=== PATIENT | male | born 1990 | race Caucasian/White ===

== ENCOUNTER 2018-07-27 15:42 | Emergency (ER) | payer SELFPAY ==
[~2018-07-27] VITALS: Ht 177.8 cm; Wt 86.2 kg
[2018-07-27 15:56] VITALS: BP 121/73
[2018-07-27] MEDS ORDERED: LIDOCAINE WITH 8.4% SOD BICARB 3 ML DISP.SYRIN. INJ ONE (16:00)
[2018-07-27] MEDS ORDERED: DIPHTH,PERTUSS(ACELL),TET TOX 0.5 ML DISP.SYRIN. VAX IM ONE (16:15)
--- NOTE | 2018-07-27 16:45 | PHYS DOC ---
Past Medical History Past Medical History: Anxiety, Depression Past Surgical History: No Surgical History Alcohol Use: None Drug Use: None Adult General Chief Complaint Chief Complaint: FINGER INJURY HPI HPI Patient is a 27 year old male who presents to be evaluated for fishing lure that got logged in the left middle finger today. Patient is right-handed. Review of Systems Review of Systems Constitutional: Denies fever or chills [] Musculoskeletal: Denies back pain or joint pain [] Integument: fishing lure logged in the left middle finger Neurologic: Denies headache, focal weakness or sensory changes [] All other systems were reviewed and found to be within normal limits, except as documented in this note. Current Medications Current Medications Current Medications Medications (Trade) Dose Ordered Sig/Ortiz Start Time Stop Time Status Last Admin Dose Admin Diphtheria/ Tetanus/Acell Pertussis (Boostrix) 0.5 ml ONCE ONCE 07/27/18 16:15 07/27/18 16:16 DC Lidocaine/Sodium Bicarbonate (Buffered Lidocaine 1%) 3 ml 1X ONCE 07/27/18 16:00 07/27/18 16:01 DC 07/27/18 16:00 3 ML Allergies Allergies Allergies Coded Allergies Type Severity Reaction Last Updated Verified No Known Drug Allergies 07/27/18 No Physical Exam Physical Exam Constitutional: Well developed, well nourished, no acute distress, non-toxic appearance. [] Skin: Warm, dry, tip of the left middle finger with a fish lure logged into the tip of the finger. Neurovascular exam is intact. Back: No tenderness, no CVA tenderness. [] Extremities: No tenderness, no cyanosis, no clubbing, ROM intact, no edema. [] Neurologic: Alert and oriented X 3, normal motor function, normal sensory function, no focal deficits noted. [] Psychologic: Affect normal, judgement normal, mood normal. [] Current Patient Data Vital Signs Vital Signs Date Time Temp Pulse Resp B/P (MAP) Pulse Ox O2 Delivery O2 Flow Rate FiO2 07/27/18 15:56 98.7 108 16 121/73 (89) 100 Room Air 98.7 EKG EKG [] Radiology/Procedures Radiology/Procedures Indication: fishing lure logged in the left middle Procedure: The area of the foreign body was left middle finger. Local anesthesia over the foreign body site was 1% buffered lidocaine. The fish lower slack was cut with a pair of pliers and the hook removed successfully. After the procedure dressing was applied to the area. The patient's tetanus status updated The patient tolerated the procedure very well Complications: None[] Course & Med Decision Making Course & Med Decision Making Pertinent Labs and Imaging studies reviewed. (See chart for details) This is a 27-year-old male patient who presents to the ED today to be evaluated for fishing lure that got logged in the left middle finger today. The fish no was removed successfully by me. See procedure note. Tetanus updated. Discharged to home. Wound care instructions and return precautions provided. Dragon Disclaimer Dragon Disclaimer This electronic medical record was generated, in whole or in part, using a voice recognition dictation system. Departure Departure Impression: Primary Impression: Fish hook injury of finger of left hand Disposition: HOME, SELF-CARE Condition: STABLE Referrals: JUANI DIAZ (PCP) follow up with your doctor as needed Patient Instructions: Fish Hook Removal Additional Instructions: We removed a fish lure from your left middle finger, keep the area clean and dry. You can wash it with soap and water. Apply Neosporin to the area twice a day. Monitor the area for any signs of infection including increased redness warmth or yellow drainage from the area and return to the ED see your doctor if they occur. Problem Qualifiers Primary Impression: Fish hook injury of finger of left hand Encounter type: initial encounter Qualified Codes: S69.92XA - Unspecified injury of left wrist, hand and finger(s), initial encounter LINDEN URENA APRN Jul 27, 2018 16:45
== END 2018-07-27 16:54 | disposition home or self-care (01) ==
LOC: ER 15:42
DX: S60.453A Superficial foreign body of left middle finger, initial encounter (principal); F41.9 Anxiety disorder, unspecified; F32.9 Major depressive disorder, single episode, unspecified; W45.8XXA Other foreign body or object entering through skin, initial encounter; Y93.89 Activity, other specified; Y92.89 Other specified places as the place of occurrence of the external cause; Y99.8 Other external cause status
CPT/HCPCS: 90471; 90715; 99284-25

== ENCOUNTER → 2020-01-01 | Outpatient (CLI) | payer BC ==
--- NOTE | 2020-01-01 12:26 | KCIC ---
Chest radiograph 01/01/2020 12:00 AM INDICATION: Supraventricular tachycardia COMPARISON: None available TECHNIQUE: Frontal and lateral views of the chest are provided. FINDINGS: The cardiomediastinal silhouette is within normal limits. There are no pleural effusions. There is no pulmonary vascular congestion. There is no pneumothorax. The lungs are clear. No significant osseous abnormality is identified. IMPRESSION: No acute cardiopulmonary process. Electronically signed by: Ana Cristina Matos MD (01/01/2020 12:23 PM) [id number]
== END | disposition home or self-care (01) ==
LOC: KCIC 10:48
PROVIDERS: ATTEND Family Medicine
DX: I47.1 Supraventricular tachycardia (principal)
CPT/HCPCS: 71046

== ENCOUNTER → 2020-03-31 | Outpatient (CLI) | payer BC ==
--- NOTE | 2020-03-31 14:05 | CARD ---
MR#: [id number] Date of Study: 03/31/2020 Ordering Physician: DENISSE BENAVIDES, Referring Physician: DENISSE BENAVIDES, Tech: Celina Camacho APPROVED REPORT EXAM: Two-dimensional and M-mode echocardiogram with Doppler and color Doppler. Other Information Quality : AverageHR: 103bpm INDICATION Chest Pain RISK FACTORS Hypertension Smoking 2D DIMENSIONS RVDd2.6 (2.9-3.5cm)Left Atrium(2D)2.5 (1.6-4.0cm) IVSd0.7 (0.7-1.1cm)Aortic Root(2D)3.0 (2.0-3.7cm) LVDd5.2 (3.9-5.9cm)LVOT Diameter2.1 (1.8-2.4cm) PWd0.7 (0.7-1.1cm)LVDs3.0 (2.5-4.0cm) FS (%) 42.6 %SV94.5 ml LVEF(%)73.3 (>50%) Aortic Valve AoV Peak Everardo.159.2cm/sAoV VTI27.3cm AO Peak GR.10.1mmHgLVOT Peak Everardo.107.2cm/s LVOT VTI 17.79cmAO Mean GR.5mmHg EVARISTO (VMAX)1.35yr0IXX (VTI)2.18cm2 Mitral Valve MV E Itkeeanp90.7cm/sMV DECEL [id number] MV A Yuulnfrx56.1cm/sMV E Mean Gr.3mmHg MV PEN34yjD/A Ratio0.9 MVA (PHT)5.45cm2 TDI E/Lateral E'4.9E/Medial E'8.3 Pulmonary Valve PV Peak Snkznqrz462.2cm/sPV Peak Grad.6mmHg Tricuspid Valve TR P. Ucqznkez480sb/sRAP XWGFHGBL7ltMo TR Peak Gr.92pfTwZUEH47syFp Pulmonary Vein S1 Gcqxvmzk23.2cm/sD2 Hvdoqelm68.0cm/s PVa [id number] LEFT VENTRICLE The left ventricle is normal size. There is normal left ventricular wall thickness. The left ventricu lar systolic function is normal. The Ejection Fraction is 55-60%. There is normal LV segmental wall m otion. Transmitral Doppler flow pattern is Grade I-abnormal relaxation pattern. RIGHT VENTRICLE The right ventricle is normal size. There is normal right ventricular wall thickness. The right ventr icular systolic function is normal. ATRIA The left atrium size is normal. The right atrium size is normal. The interatrial septum is intact wit h no evidence for an atrial septal defect or patent foramen ovale as noted on 2-D or Doppler imaging. AORTIC VALVE The aortic valve is normal in structure and function. Doppler and Color Flow revealed no significant aortic regurgitation. There is no significant aortic valvular stenosis. Calculated aortic valve area is 2.9 cm2 with maximum pressure gradient of 10 mmHg and mean pressure gradient of 5 mmHg. MITRAL VALVE The mitral valve is normal in structure and function. There is no evidence of mitral valve prolapse. There is no mitral valve stenosis. Doppler and Color Flow revealed no mitral valve regurgitation note d. TRICUSPID VALVE The tricuspid valve is normal in structure and function. Doppler and Color Flow revealed trace tricus pid regurgitation with an estimated PAP of 18 mmHg. There is no tricuspid valve stenosis. PULMONIC VALVE The pulmonic valve is not well visualized. Doppler and Color Flow revealed no pulmonic valvular regur gitation. GREAT VESSELS The aortic root is normal in size. The ascending aorta is normal in size. The IVC was not visualized. PERICARDIAL EFFUSION There is no evidence of significant pericardial effusion. Critical Notification Critical Value: No <Conclusion> The left ventricular systolic function is normal. The Ejection Fraction is 55-60%. There is normal LV segmental wall motion. Transmitral Doppler flow pattern is Grade I-abnormal relaxation pattern. Trace tricuspid regurgitation with an estimated PAP of 18 mmHg. There is no evidence of significant pericardial effusion. Signed by : Denisse Benavides, Electronically Approved : 03/31/2020 14:04:52
== END ==
LOC: ECHO 12:50
PROVIDERS: ATTEND Internal Medicine Cardiovascular Disease
DX: R07.9 Chest pain, unspecified (principal)
CPT/HCPCS: 93306